=== PATIENT | male | born 1980 | race American Indian/Alaskan Native ===

== ENCOUNTER 2017-07-01 21:37 | Emergency (ER) | payer BC, OTHER ==
[2017-07-01 21:37] VITALS: BMI 34.8
[2017-07-01 21:53] VITALS: TEMP 98.3
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
[2017-07-01 23:08] VITALS: BP 141/87; PULSE 74; RESP 19
[2017-07-01 23:10] VITALS: O2SAT 95
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
--- NOTE | 2017-07-02 13:32 | RAD ---
PROCEDURE: Cervical spine 07/01/2017 Three views of the cervical spine performed. Note the examination is limited due to to incomplete visualization of the C7 segment in the lateral in due to overlying shoulder artifact. In addition, the odontoid is partially obscured as well by overlying at incisor teeth HISTORY: Pain. COMPARISON: None. FINDINGS: BONES: No evidence of acute displaced fracture nor the retropulsed fragments within limitation of the exam. Vertebral bodies exhibit relatively normal stature DISC SPACES: . Wake or hip it Slight posterior subluxation C4 over C5 and C5 over C6. Remaining vertebral bodies otherwise exhibit normal alignment. Disc space heights are relatively maintained. SOFT TISSUES: Normal. No prevertebral soft tissue swelling. OTHER FINDINGS: None. IMPRESSION: Limited study demonstrating no acute fractures. Consider followup CT scan or MRI if symptoms persist or occult fracture suspected clinically
== END 2017-07-01 23:23 | disposition home or self-care (01) ==
LOC: C.ER 21:37
DX: S33.5XXA Sprain of ligaments of lumbar spine, initial encounter (principal); S16.1XXA Strain of muscle, fascia and tendon at neck level, initial encounter; V43.52XA Car driver injured in collision with other type car in traffic accident, initial encounter; Y92.410 Unspecified street and highway as the place of occurrence of the external cause